=== PATIENT | male | born 1980 | race Caucasian/White ===

== ENCOUNTER 2017-03-23 04:03 | Emergency (ER) | payer OTHER ==
[~2017-03-23] VITALS: Ht 180.3 cm; Wt 97.7 kg
[~2017-03-23 04:03] MED LIST: SULF1TAB7 PO
[2017-03-23 04:09] VITALS: BP 140/83; PULSE 104; RESP 21; O2SAT 92
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
[2017-03-23] MEDS ORDERED: 0.9% Sodium Chloride 1,000 ML IV ONE (04:37)
[2017-03-23] MEDS ORDERED: HYDROmorphone 1 mg/mL Inj IVPUSH PRN (04:40)
[2017-03-23 05:24] LABS: BASOPHILS % (AUTO) 0.2 % (0-3); EOSINOPHILS % (AUTO) 0.3 % (0-5); MONOCYTES % (AUTO) 5.1 % (4-12); Mean Corpuscular Hemoglobin 29.7 pg (27.0-35.0); Mean Corpuscular Volume 88.4 fL (81-100); NEUTROPHILS % (AUTO) 70.7 % (40-74); Platelet Count 278 bil/L (150-400)
[2017-03-23 06:28] LABS: INR 0.94 ratio
[2017-03-23] MEDS ORDERED: TdaP Vaccine 0.5 mL Inj IM ONE (06:45)
[2017-03-23] MEDS ORDERED: IBUP-1827 PO (06:49)
[2017-03-23] MEDS ORDERED: OXYC1TAB24 PO (06:49)
[2017-03-23] MEDS ORDERED: _oxyCODONE/APAP 5-325 mg Tablet PO PRN (06:50)
[2017-03-23 07:04] VITALS: BP 135/55; PULSE 94; RESP 18; O2SAT 100
--- NOTE | 2017-03-23 09:44 | DRSVH ---
PROCEDURE: CT ANKLE LEFT W/O CONTRAST ([id number]) INDICATIONS: poss open fracture TECHNIQUE: Noncontrast 3-mm axial sections acquired from the distal tibial shaft to the talar dome, with coronal and sagittal reformats. For radiation dose reduction, the following was used: automated exposure c ontrol, adjustment of mA and/or kV according to patient size. COMPARISON: None. FINDINGS: Image quality: Excellent. Bones: There is a mildly displaced minimally comminuted spiral fracture of the distal fibular diaphys is. There is posterior displacement of the distal component by approximately 1/4 shaft width. Fract ure extends to the distal tibiofibular syndesmosis. There are a few small clustered ossicles posteri or to the distal aspect of the distal tibia with slightly indistinct margins which may represent smal l chip or avulsion fractures. Soft tissues: There is soft tissue swelling and subcutaneous edema laterally along the distal fibula. No tibiotalar joint effusion. Achilles, flexor, extensor, and peroneal tendons appear grossly inta ct. IMPRESSION: 1. Mildly displaced spiral fracture of the distal fibula diaphysis as described. 2. Small ossicles with indistinct margins posterior to the distal tibia may represent small chip or avulsion fractures. Dictated by: Andrew Gonzalez M.D. on 03/23/2017 at 9:32 Approved by: Andrew Gonzalez M.D. on 03/23/2017 at 9:36
--- NOTE | 2017-03-23 12:10 | DRSVH ---
PROCEDURE: X-RAY CHEST ONE VIEW, PORTABLE ([id number]) INDICATIONS: poss open fx TECHNIQUE: One view of the chest was acquired. COMPARISON: [facility], , CHEST 2 VIEW, 06/25/2011, 11:02. FINDINGS: Surgical changes and devices: None. Lungs and pleura: No pleural effusions or pneumothorax. Lungs are clear. Mediastinum: Mediastinal contours appear normal. Heart size is normal. Bones and chest wall: No suspicious bony lesions. Overlying soft tissues appear unremarkable. IMPRESSION: 1. No acute cardiopulmonary disease. Dictated by: Andrew Gonzalez M.D. on 03/23/2017 at 12:02 Approved by: Andrew Gonzalez M.D. on 03/23/2017 at 12:03
--- NOTE | 2017-03-23 12:12 | DRSVH ---
PROCEDURE: X-RAY LEFT ANKLE, MINIMUM THREE VIEWS ([id number]) INDICATIONS: poss open fx TECHNIQUE: 3 views of the ankle were acquired. COMPARISON: [facility], CT, CT ANKLE LT WO CON, 03/23/2017, 5:51. FINDINGS: Bones: There is a mildly displaced slightly comminuted spiral fracture of the distal fibular diaphysi s. There is abnormal widening of the medial ankle mortise. There is also mild widening of the dista l tibiofibular syndesmosis. No suspicious bony lesions. Soft tissues: No definite tibiotalar joint effusion. Achilles tendon appears intact. IMPRESSION: 1. Mildly displaced spiral fracture of the distal fibular diaphysis. 2. Abnormal widening of the medial ankle mortise and tibiofibular syndesmosis consistent with ligame ntous injury. Dictated by: Andrew Gonzalez M.D. on 03/23/2017 at 12:03 Approved by: Andrew Gonzalez M.D. on 03/23/2017 at 12:05
[2017-03-26] MEDS ORDERED: CEPH-512 PO (09:36)
== END 2017-03-23 07:50 | disposition home or self-care (01) ==
LOC: SED 04:03
DX: S82.832A Other fracture of upper and lower end of left fibula, initial encounter for closed fracture (principal); S90.512A Abrasion, left ankle, initial encounter; Y04.0XXA Assault by unarmed brawl or fight, initial encounter; Y93.89 Activity, other specified; Y92.481 Parking lot as the place of occurrence of the external cause; Y99.8 Other external cause status; Z23 Encounter for immunization
CPT/HCPCS: 29515; 36415; 71010; 73610; 73700; 80053; 85025; 85610; 85730; 90471; 90715; 96361; 96374; 99285; G0480; J1170; J7030

== ENCOUNTER 2017-03-28 05:32 | Day surgery (SDC) | payer OTHER ==
[~2017-03-28] VITALS: Ht 182.9 cm; Wt 97.7 kg
[2017-03-28] VITALS (13 sets, daily range): BP systolic 126–144; BP diastolic 66–90; PULSE 68–107; RESP 10–17; O2SAT 89–100
[~2017-03-28 05:32] MED LIST changes: +CEPH-512 PO; +IBUP-1827 PO; +OXYC1TAB24 PO; -SULF1TAB7 PO
[2017-03-28] MEDS ORDERED: HYDROmorphone 2 mg/mL Inj ONE (05:33)
[2017-03-28] MEDS ORDERED: Neostigmine 1 mg/mL 10 mL Inj ONE (05:33)
[2017-03-28] MEDS ORDERED: Rocuronium 10 mg/mL 5 mL Inj ONE (05:33)
[2017-03-28] MEDS ORDERED: Dexamethasone 4 mg/mL Inj ONE (05:33)
[2017-03-28] MEDS ORDERED: Ondansetron 2 mg/mL 2 mL Inj ONE (05:33)
[2017-03-28] MEDS ORDERED: Propofol 10,000 mCg/mL 20 mL Inj ONE (05:33)
[2017-03-28] MEDS ORDERED: Phenylephrine/NS 100 mCg/mL 10 mL Syringe IVPUSH ONE (05:33)
[2017-03-28] MEDS ORDERED: Glycopyrrolate 0.2 MG/ML 1mL Inj ONE (05:33)
[2017-03-28] MEDS ORDERED: fentaNYL-PF 50 mCg/mL 2 mL Inj ONE (05:33)
[2017-03-28] MEDS: Lactated Ringer's 1,000 ML IV SCH ×2 (05:47→07:19)
[2017-03-28] MEDS ORDERED: CeFAZolin 2 Gm/50 mL D5W IV Premix IV ONE (06:00)
[2017-03-28] MEDS ORDERED: Lactated Ringer's 1,000 ML IV ONE ×2 (06:00→11:08)
--- NOTE | 2017-03-28 07:02 | PCM.HPANE ---
Patient Data Date of Service: Mar 28, 2017 Surgeon Admitting Provider: Attending Provider:Av Momin MD Primary Care Physician:Noppolina Other Provider:Koffi Funk Anesthesia Reason for Visit Left Ankle Fracture Ht/WT & BMI Height (Feet): 6 Height (Inches): 0 Weight (Kilograms): 97.73 Body Mass Index 29.00 Allergies Coded Allergies: No Known Allergies (Verified Allergy, Unknown, 03/26/17) Past Anesthesia History Anesthesia History: Denies:: Fam Anesthesia Reaction, Fam Malignant Hypertherm Diabetes History Hx Diabetes?: No MRSA MRSA: No Medications Hypertension Medication: No Home Meds Incl Beta Nettie: No Active Scripts oxyCODONE-Acetaminophen 5-325 mg 1 Each Tablet1-2 Tab PO Q6H PRN For Pain #30 TABLET Prov:Juan East MD 03/23/17 Ibuprofen 600 Mg [id number] Mg PO QID PRN For Pain #60 TABLET Prov:Juan East MD 03/23/17 Reported Medications Cephalexin (Keflex)500 Mg [id number] Mg PO TID #40 CAPSULE Ref 0 X 2 DAYS-START 03/24/17 03/26/17 History History of ENT Problems?: Yes HEENT History: Positive for:: Sinus Problem (HX EPISTAXIS) Denture Type: None Teeth Condition: Within Normal Limits Hx of Heart Problems?: No Cardiovascular History: Denies:: Congestive Heart Failure Heart Murmur Hypertension Hx of Respiratory Problem?: No Respiratory History: Denies:: Tuberculosis Use of C-PAP Machine Hx Neurologic Problems?: Yes Neurological History: Positive for:: Headaches Hx of GI Problems?: No Hx of Problems?: No HX of Peritoneal Dialysis: No Skin History: Denies:: History Skin Disorders? Pressure Ulcers Hx Musculoskeletal Problems?: Yes Musculoskeletal History: Positive for:: Musculoskeletal Trauma (FX LT ANKLE= CURRENT PROBLEM) Denies:: Back Injury (C/OF BACK PAIN) Hx of Psycho/Social Problems?: No Hx Surgeries?: No Hx Any Other Health Problems?: No Other History: Denies:: Cancer Endocrine Disease Hospitalization Thyroid Disease Hx Diabetes: No Hx Alcohol Use: Yes ("SOCIAL")Hx Substance Use: No Smoking Status: Former Smoker Have You Smoked inLast 12 mo: No Stop/Bang S-Snoring: Do You Snore Loudly: No T-Tired: feel tired, fatigued: No O-Obsered: Observed not breath: No P-Blood Pressure: treated: No B- Body Mass Index > 35 kg/m2: No A- Age over 50: No N- Neck Large Circumference: No G- Gender Male: Yes JARED Total Score: 1 JARED Risk Assessment: Low Risk, <3 Yes Risk Assessment Category Category 1A: Patient has history of documented sleep apnea, and HAS NOT received any narcotic, sedative or anesthesia administration during this stay. Category 1B: Patient has history of documented sleep apnea, and HAS received any narcotic , sedative or anesthesia administration during this stay Category 2: Patient has SUSPECTED Obstructive Sleep Apnea, and HAS received any narcotic , sedative or anesthesia administration during this stay. Category 3: Patient has SUSPECTED Obstructive Sleep Apnea and HAS NOT received narcotic, sedative or anesthesia administration during this stay. Category 4: Outpatient in Procedural Areas with known sleep apnea or who screen positive for High Risk via the STOP/BANG questionnaire. Exam Exam Vital Signs Vital Signs Date Time Temp Pulse Resp B/P Pulse Ox O2 Delivery O2 Flow Rate FiO2 03/28/17 05:48 36.4 76 16 132/85 100 Room Air General Appearance: Alert, Oriented X3, Cooperative HEENT/AIRWAY: MP 2, Neck Movement (Full, patricia), Mouth Opening (Wide) Lungs: Clear to Auscultation, Normal Air Movement Heart: Regular Rate/Rhythm, Normal S1, Normal S2 Meds/Labs/Diagnostics Admission Meds Current Medications Lactated Ringer's (Lr) 1,000 ml @ 120 mls/hr Q8H20M IV Last administered on t 05:47; Start 03/28/17 at 05:00; Stop 03/28/17 at 13:19 Plan Impression Patient chart reviewed, patient interviewed and anesthestic plan with risks, benefits, and alternatives discussed, and informed consent obtained. NPO per Anesth. Guidelines: Yes ASA Physical Status: ASA1 Normal Healthy Anesthetic Plan: GA Bene/Risks/Altern/Consents: Yes HP Complete Prior to Induction: Yes Nikolai Kessler MD Mar 28, 2017 07:02
[2017-03-28] MEDS ORDERED: Lactated Ringer's 1,000 ML IV SCH (07:03)
[2017-03-28] MEDS ORDERED: Lactated Ringer's 500 ML IV PRN (07:03)
[2017-03-28] MEDS ORDERED: Labetalol 5 mg/mL 4 mL Inj IV PRN (07:05)
[2017-03-28] MEDS ORDERED: Atropine 0.4 mg/mL Inj IVPUSH PRN (07:05)
[2017-03-28] MEDS ORDERED: HYDROmorphone 1 mg/mL Inj IVPUSH PRN (07:05)
[2017-03-28] MEDS ORDERED: Phenylephrine 10,000 mCg/mL Inj IVPUSH PRN (07:05)
[2017-03-28] MEDS ORDERED: hydrALAZINE 20 mg/mL Inj IVPUSH PRN (07:05)
[2017-03-28] MEDS ORDERED: Ondansetron 2 mg/mL 2 mL Inj IVPUSH PRN (07:05)
[2017-03-28] MEDS ORDERED: fentaNYL-PF 50 mCg/mL 2 mL Inj IVPUSH PRN (07:05)
[2017-03-28] MEDS ORDERED: Dexamethasone 4 mg/mL Inj IVPUSH PRN (07:05)
[2017-03-28] MEDS ORDERED: EPHEDrine Sulfate 50 mg/mL Inj IVPUSH PRN (07:05)
[2017-03-28] MEDS ORDERED: MetoCLOpramide 5 mg/mL 2 mL Inj IVPUSH PRN (07:05)
[2017-03-28] MEDS ORDERED: Bupivacaine-MPF 0.5% 30 mL Inj INFILTRATE ONE (08:09)
[2017-03-28] MEDS ORDERED: oxyCODONE-Acetamin 5-325 mg Tablet PO PRN (10:35)
[2017-03-28] MEDS ORDERED: HYDROmorphone 0.5 mg/0.5 mL iSecure Syringe ONE (10:52)
--- NOTE | 2017-03-28 11:30 | PCM.ANEP1 ---
Post Anesthesia PACU Phase 1 Assessment Date of Service: Mar 28, 2017 Vital Signs Vital Signs Date Time Temp Pulse Resp B/P Pulse Ox O2 Delivery O2 Flow Rate FiO2 03/28/17 11:14 69 16 134/76 96 Nasal Cannula 3 03/28/17 11:05 68 10 126/68 93 Nasal Cannula 3 03/28/17 11:00 96 16 137/76 89 Room Air 03/28/17 10:50 82 14 144/90 98 Nasal Cannula 3 03/28/17 10:45 79 17 133/74 95 Nasal Cannula 3 03/28/17 10:40 36.7 89 14 138/83 95 Nasal Cannula 3 03/28/17 10:35 96 14 144/82 95 Nasal Cannula 3 03/28/17 10:30 93 14 139/66 95 Nasal Cannula 3 03/28/17 10:25 101 14 134/71 95 Nasal Cannula 2 03/28/17 10:19 37.0 107 13 137/89 98 Simple Mask 8 03/28/17 05:48 36.4 76 16 132/85 100 Room Air Anesthetic Administered: GA Level of Alertness: Awake, talking MARRERO's with Equal Strength: Yes Pain: No Nausea or Vomiting: No CV Function & Hydration Stable: Yes Airway Device: Oxygen Delivery: Simple Mask Lungs: Normal Air Movement PACU Phase 2 Assessment Complications: No Follow up Care: No Patient Instructions Provided: N/A Nikolai Kessler MD Mar 28, 2017 11:30
--- NOTE | 2017-03-28 13:24 | DRSVH ---
PROCEDURE: X-RAY LEFT ANKLE, MINIMUM THREE VIEWS ([id number]) INDICATIONS: LEFT ANKLE SURGERY; OPERATIVE POST REDUCTION TECHNIQUE: 3 views of the ankle were acquired. COMPARISON: , CT, CT ANKLE LT WO CON, 03/23/2017, 5:51. , CR, XR ANKLE 3VW LT, 03/23/2017, 4:49. FINDINGS: Bones: Near anatomic alignment status post ORIF of distal fibular metadiaphyseal fracture. Stabiliza tion plate and multiple associated fixation screws in expected position as well as a single fully can nulated surgical screw which traverses the tibial-fibular syndesmosis. Ankle mortise is symmetric. Soft tissues: No tibiotalar joint effusion. Achilles tendon appears normal. IMPRESSION: Near-anatomic alignment status post ORIF of distal fibular metadiaphyseal fracture. Dictated by: Sohan Mahajan RRA Interpreted: Summer Crabtree MD on 03/28/2017 at 10:08 Approved by: Summer Crabtree MD, PhD on 03/28/2017 at 13:22
--- NOTE | 2017-03-28 13:31 | DRSVH ---
PROCEDURE: X-RAY LEFT ANKLE, MINIMUM THREE VIEWS ([id number]) INDICATIONS: Post op TECHNIQUE: 3 views of the ankle were acquired. COMPARISON: [facility], CR, XR ANKLE 3VW LT, 03/28/2017, 9:19. FINDINGS: Bones: Fine sharlene detail obscured by overlying cast material. Within these limits, near anatomic sta ble alignment status post ORIF of distal fibular fracture. Stable positioning of fixation plate and a ssociated fixation screws. Ankle mortise is symmetric. Soft tissues: No tibiotalar joint effusion. Achilles tendon appears normal. IMPRESSION: Stable postsurgical changes and bony alignment. Dictated by: Sohan Mahajan [facility] Interpreted: Summer Crabtree MD on 03/28/2017 at 11:07 Approved by: Summer Crabtree MD, PhD on 03/28/2017 at 13:25
[2017-03-28] MEDS ORDERED: Ondansetron 8 mg ODT Tablet PO ONE (13:35)
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
== END 2017-03-28 23:59 | disposition home or self-care (01) ==
LOC: SAS 05:32
PROVIDERS: ATTEND Orthopaedic Surgery
DX: S82.842A Displaced bimalleolar fracture of left lower leg, initial encounter for closed fracture (principal); S93.432A Sprain of tibiofibular ligament of left ankle, initial encounter; Y04.8XXA Assault by other bodily force, initial encounter; F17.210 Nicotine dependence, cigarettes, uncomplicated
CPT/HCPCS: 27814; 27829; 73610; 76001; C1713; J0690; J1100; J1170; J2250; J2370; J2405; J2710; J3010; J7120

== ENCOUNTER → 2017-07-04 | Day surgery (SDC) | payer OTHER ==
[~2017-07-04] VITALS: Ht 182.9 cm; Wt 98.9 kg
[~2017-07-04] MED LIST changes: +Bupivacaine-MPF 0.5% 30 mL Inj INFILTRATE ONE; -CEPH-512 PO; +CEPH500C PO; +CeFAZolin Inj 2 GM in IV Premix 1 EACH IV ONE; +Dexamethasone 4 mg/mL Inj IVPUSH PRN; +EPHEDrine Sulfate 50 mg/mL Inj IVPUSH PRN; +HYDROmorphone 1 mg/mL Inj IVPUSH PRN; +Lactated Ringer's 1,000 ML IV ONE; +Lactated Ringer's 1,000 ML IV SCH; +Lactated Ringer's 500 ML IV PRN; +MetoCLOpramide 5 mg/mL 2 mL Inj IVPUSH PRN; +Ondansetron 2 mg/mL 2 mL Inj IVPUSH PRN; +Phenylephrine 10,000 mCg/mL Inj IVPUSH PRN; +fentaNYL-PF 50 mCg/mL 2 mL Inj IVPUSH PRN; +oxyCODONE-Acetamin 5-325 mg Tablet PO PRN
[2017-07-04 07:30] VITALS: BP 122/78; PULSE 61; RESP 16; O2SAT 95
[2017-07-04] MEDS: Lactated Ringer's 1,000 ML IV SCH ×2 (07:30→08:39)
--- NOTE | 2017-07-04 09:26 | PCM.HPANE ---
Patient Data Date of Service: Jul 04, 2017 Surgeon Admitting Provider: Attending Provider:Av Momin MD Primary Care Physician:Noppolina Other Provider:Koffi Funk Anesthesia Reason for Visit Left Ankle Syndesmosis Disruption Ht/WT & BMI Height (Feet): 6 Height (Inches): 0 Weight (Kilograms): 98.9 Body Mass Index 29.00 Allergies Coded Allergies: No Known Allergies (Verified Allergy, Unknown, 07/02/17) Past Anesthesia History Anesthesia History: Denies:: Abnormal Airway, Anesthesia Reactions, Difficult Intubation, Fam Anesthesia Reaction, Fam Malignant Hypertherm, Malignant Hyperthermia Diabetes History Hx Diabetes?: No MRSA MRSA: No Medications Hypertension Medication: No Home Meds Incl Beta Nettie: No Reported Medications Ibuprofen 600 Mg [id number] Mg PO BID PRN For Pain Ref 0 07/02/17 Discontinued Reported Medications Cephalexin (Keflex)500 Mg [id number] Mg PO TID #40 CAPSULE Ref 0 X 2 DAYS-START 03/24/17 03/26/17 Discontinued Scripts oxyCODONE-Acetaminophen 5-325 mg 1 Each Tablet1-2 Tab PO Q6H PRN For Pain #30 TABLET Prov:Juan East MD 03/23/17 Ibuprofen 600 Mg [id number] Mg PO QID PRN For Pain #60 TABLET Prov:Juan East MD 03/23/17 History History of ENT Problems?: Yes HEENT History: Positive for:: TMJ (Rt side clicks with chewing) Denies:: Abnormal Airway Cataracts Difficult Intubation Dysphagia Glaucoma Hearing Problem Sinus Problem (HX EPISTAXIS) Denture Type: None Teeth Condition: Within Normal Limits Missing Teeth Hx of Heart Problems?: No Cardiovascular History: Denies:: Congestive Heart Failure Heart Murmur Hypertension Hx of Respiratory Problem?: No Respiratory History: Denies:: Hemoptysis Pneumonia Pulmonary Embolism Tuberculosis Use of C-PAP Machine Hx Neurologic Problems?: Yes Neurological History: Denies:: Alzheimer's Disease CVA Dementia Dizziness Headaches Multiple Sclerosis Parkinson's Disease Seizures TIA Hx of GI Problems?: No Hx of Problems?: No HX of Peritoneal Dialysis: No Male Hx: Denies:: Prostate Problems Scrotal Mass Testicular Surgery Skin History: Denies:: History Skin Disorders? Pressure Ulcers Hx Musculoskeletal Problems?: Yes Musculoskeletal History: Positive for:: Musculoskeletal Trauma (FX LT ANKLE) Denies:: Back Injury (C/OF BACK PAIN) Degenerative Joint Myasthenia Gravis Osteoarthritis Rheumatoid Arthritis Hx of Psycho/Social Problems?: No Hx Surgeries?: Yes (lt ankle, amp lt thumb, rt is fused at joint) Hx Any Other Health Problems?: No Other History: Denies:: Cancer Endocrine Disease Hospitalization Thyroid Disease History Blood Transfusions: Positive for:: Accept Blood Products? Denies:: Blood Transfusions Hx Diabetes: No Hx Alcohol Use: Yes ("SOCIAL")Hx Substance Use: No Smoking Status: Former Smoker Have You Smoked inLast 12 mo: No Stop/Bang Treated for Sleep Apnea?: No Do You Have a CPAP Machine?: No S-Snoring: Do You Snore Loudly: No T-Tired: feel tired, fatigued: No O-Obsered: Observed not breath: No P-Blood Pressure: treated: No B- Body Mass Index > 35 kg/m2: No A- Age over 50: No N- Neck Large Circumference: No G- Gender Male: Yes JARED Total Score: 1 Risk Assessment Category Category 1A: Patient has history of documented sleep apnea, and HAS NOT received any narcotic, sedative or anesthesia administration during this stay. Category 1B: Patient has history of documented sleep apnea, and HAS received any narcotic , sedative or anesthesia administration during this stay Category 2: Patient has SUSPECTED Obstructive Sleep Apnea, and HAS received any narcotic , sedative or anesthesia administration during this stay. Category 3: Patient has SUSPECTED Obstructive Sleep Apnea and HAS NOT received narcotic, sedative or anesthesia administration during this stay. Category 4: Outpatient in Procedural Areas with known sleep apnea or who screen positive for High Risk via the STOP/BANG questionnaire. Exam Exam Vital Signs Vital Signs Date Time Temp Pulse Resp B/P Pulse Ox O2 Delivery O2 Flow Rate FiO2 07/04/17 07:30 36.2 61 16 122/78 95 Room Air General Appearance: Alert, Oriented X3, Cooperative HEENT/AIRWAY: MP 1 Lungs: Clear to Auscultation Heart: Exam Unremarkable Meds/Labs/Diagnostics Admission Meds Current Medications Cefazolin Sodium/ Dextrose 2 gm/ Premix 50 ml @ 100 mls/hr PREOP ONCE IV Last administered on 07/04/17t 08:42; Start 07/04/17 at 06:00; Stop 07/04/17 at 06:29; Status DC Lactated Ringer's (Lr) 1,000 ml @ 120 mls/hr Q8H20M IV Last administered on 08:39; Start 07/04/17 at 05:00; Stop 07/04/17 at 13:19 Bupivacaine HCl (Sensorcaine-MPF 0.5% Inj) 30 ml STK-MED ONCE INFILTRATE Last administered on 07/04/17 09:05; Start 07/04/17 at 09:05; Stop 07/04/17 at 09:11 ; Status DC Plan Impression Patient chart reviewed, patient interviewed and anesthestic plan with risks, benefits, and alternatives discussed, and informed consent obtained. NPO per Anesth. Guidelines: Yes ASA Physical Status: ASA1 Normal Healthy Anesthetic Plan: MAC Bene/Risks/Altern/Consents: Yes HP Complete Prior to Induction: Yes Abhinav Nieto MD Jul 04, 2017 09:26
[2017-07-04 09:44] VITALS: BP 136/80; PULSE 82; RESP 15; O2SAT 99
[2017-07-04 10:32] VITALS: BP 131/88; PULSE 56; RESP 16; O2SAT 99
--- NOTE | 2017-07-04 10:44 | PCM.ANEP1 ---
Post Anesthesia PACU Phase 1 Assessment Date of Service: Jul 04, 2017 Vital Signs Vital Signs Date Time Temp Pulse Resp B/P Pulse Ox O2 Delivery O2 Flow Rate FiO2 07/04/17 10:32 56 16 131/88 99 Room Air 07/04/17 09:44 35.8 82 15 136/80 99 Room Air 07/04/17 07:30 36.2 61 16 122/78 95 Room Air Anesthetic Administered: MAC Level of Alertness: Awake, talking Pain: Yes Pain Scale Score: 5 Nausea or Vomiting: No CV Function & Hydration Stable: Yes Airway Device: Oxygen Delivery: Room Air Lungs: Clear to Auscultation PACU Phase 2 Assessment Patient Instructions Provided: N/A Abhinav Nieto MD Jul 04, 2017 10:44
--- NOTE | 2017-07-04 13:18 | OP ---
[address] [address] OPERATIVE REPORT PATIENT: DOMINIQUE GILLIS : 1980 MR#: [id number] ADMIT: 07/04/2017 JOB ID: [id number] DATE OF SURGERY: 07/04/2017 PREOPERATIVE DIAGNOSIS(ES): 1. Healing left ankle bimalleolar equivalent fracture (ICD-10 code S82.842D). 2. Left ankle syndesmosis injury, healing (ICD-10 code S93.432D). POSTOPERATIVE DIAGNOSIS(ES): 1. Healing left ankle bimalleolar equivalent fracture (ICD-10 code S82.842D). 2. Left ankle syndesmosis injury, healing (ICD-10 code S93.432D). PROCEDURE: Removal of buried syndesmosis screw, left ankle (CPT code 19229). SURGEON: Av Momin MD. ASSISTING: None. ANESTHESIA: Local with IV sedation. TOURNIQUET: Utilized. SPONGE AND NEEDLE COUNT: Correct. SPECIMEN: No specimen to Pathology. ESTIMATED BLOOD LOSS: 1 mL. DRAINS: None. INDICATIONS: This is a 36-year-old male with a healed left ankle bimalleolar equivalent fracture and syndesmosis injury. He has a retained syndesmosis screw. PROCEDURE IN DETAIL: Under adequate IV sedation, a well-padded tourniquet was applied to the left thigh. The left leg was prepped and draped in a sterile fashion. After appropriate time-out was called, I identified the position of the syndesmosis screw with the mini C-arm. The skin was anesthetized and the subcutaneous tissues were anesthetized with 0.5% plain Marcaine. The leg was elevated and exsanguinated. Tourniquet inflated to 300 mmHg. A small incision was fashioned over the syndesmosis screw. It was taken down through the subcutaneous tissues. Care was taken to protect surrounding neurovascular structures. The screw head was identified. It was backed out without difficulty. Final x-ray was taken with the mini C-arm confirming that this syndesmosis screw had been removed. Tourniquet released. Minimal hemostasis required. Soft tissues covered over the plate with some interrupted sutures of 4-0 Vicryl. Subcutaneous layer closed with some interrupted sutures of 4-0 Vicryl. Skin reapproximated with horizontal mattress sutures of 4-0 nylon. Xeroform and a small dry sterile dressing applied. The patient taken to the recovery room in stable condition. Sponge and needle counts correct. No complications. PLAN: Patient discharged home on Keflex and Percocet 5/325. He may weightbear as tolerated in his boot. He does not need to sleep in the boot. The screw hole will take somewhere between 4-6 weeks to fill in. He is due to have sutures removed in the office in two weeks. Thereafter, he could be seen in followup at six weeks. He should be able to begin weightbearing out of the boot at four weeks. I would suggest he be fitted with an ankle lacer at his two-week postoperative visit, so that he could change to this at the four-week postoperative timeframe and wean himself from the boot. He also needs to go to physical therapy to begin some strengthening exercises. The patient already has been returned to light duty work. If he has any questions, he may contact the office.
--- NOTE | 2017-07-04 14:37 | DRSVH ---
PROCEDURE: X-RAY LEFT ANKLE, TWO VIEWS ([id number]) INDICATIONS: INTER OP PROCEDURE MINI C ARM TECHNIQUE: 1 views of the ankle were acquired. COMPARISON: [facility], CR, XR ANKLE 3VW LT, 05/12/2017, 9:06. FINDINGS: Limited single intraoperative image demonstrates fixation hardware involving the distal fibular fract ure which is incompletely visualized. The fully threaded screw traversing the tibiofibular syndesmos is has been removed. Impression: Removal of syndesmotic surgical screw otherwise the bony alignment and surgical hardware were visualized appears in expected position. Dictated by: Sohan Mahajan [facility] Interpreted: Rosalba Amezcua MD on 07/04/2017 at 9:39 Approved by: Rosalba Amezcua M.D. on 07/04/2017 at 14:35
== END | disposition home or self-care (01) ==
LOC: SAS 07:08
PROVIDERS: ATTEND Orthopaedic Surgery
DX: T84.84XA Pain due to internal orthopedic prosthetic devices, implants and grafts, initial encounter (principal); S82.842D Displaced bimalleolar fracture of left lower leg, subsequent encounter for closed fracture with routine healing; S93.432D Sprain of tibiofibular ligament of left ankle, subsequent encounter; Y04.2XXD Assault by strike against or bumped into by another person, subsequent encounter; Y92.9 Unspecified place or not applicable; Z87.891 Personal history of nicotine dependence
CPT/HCPCS: 20680; 73600; J0690; J7120